=== PATIENT | female | born 1995 | race American Indian/Alaskan Native ===

== ENCOUNTER 2019-01-13 18:19 | Emergency (ER) | payer OTHER ==
[~2019-01-13] VITALS: Ht 167.6 cm; Wt 117.9 kg
[~2019-01-13 18:19] MED LIST: ATIVAN0.5 MG PO
--- OUTSIDE RECORDS SUMMARY | 2019-01-13 18:22 | XMS ---
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 E.D. VISIT COUNT (12 MO.) [address] [place] [address] 3 [facility] 3 [facility] TOTAL 8 NOTE: Visits indicate total known visits. ED/UCC VISIT TRACKING (12 MO.) 01/13/2019 18:20 [facility] TYPE: Emergency COMPLAINT: - CHEST PAIN, COUGH 12/30/2018 10:18 [facility] [place] TYPE: Emergency DIAGNOSES: - anxiety - Anxiety disorder, unspecified 11/29/2018 18:04 [facility] Yolanda POWELL TYPE: Emergency COMPLAINT: - shortness of breath 11/01/2018 23:19 [facility] [place] TYPE: Emergency COMPLAINT: - CHEST PAIN DIAGNOSES: - Chest pain, unspecified - Precordial pain 10/11/2018 16:35 STEPH[facility] Joshi TYPE: Emergency COMPLAINT: - HIVES DIAGNOSES: - Urticaria, unspecified 10/09/2018 22:22 [facility] Belen POWELL TYPE: Emergency COMPLAINT: - Anxiety 09/25/2018 13:14 [facility] Yolanda POWELL TYPE: Emergency COMPLAINT: - shortness of breath 09/25/2018 00:19 Cecy POWELL TYPE: Emergency INPATIENT VISIT TRACKING (12 MO.) No inpatient visits to display in this time frame [id number]
== END 2019-01-13 19:37 | disposition left against medical advice (07) ==
LOC: ED 18:19
DX: R07.9 Chest pain, unspecified (principal); Z53.21 Procedure and treatment not carried out due to patient leaving prior to being seen by health care provider

== ENCOUNTER 2019-04-30 00:17 | Emergency (ER) | payer OTHER ==
[~2019-04-30] VITALS: Ht 167.6 cm; Wt 117.9 kg
--- OUTSIDE RECORDS SUMMARY | 2019-04-30 00:24 | XMS ---
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 CRITERIA MET - Group Notification - 6 ED Visits in 6 Months CARE PROVIDERS Name Unknown [facility] 01/14/2019-Current PHONE: [phone] [facility] Primary [facility] PHONE: Unknown DEEPALI ANDERSEN Primary Care [facility] PHONE: Unknown Genia has no Care Guidelines for this patient. E.D. VISIT COUNT (12 MO.) 1 [facility] 2 [facility] [address] [facility] 4 [facility] Edwards TOTAL 10 NOTE: Visits indicate total known visits. ED/UCC VISIT TRACKING (12 MO.) 04/30/2019 00:17 [facility] [place] TYPE: Emergency COMPLAINT: - SOB,DIZZINESS 03/12/2019 17:40 [facility] TYPE: Emergency COMPLAINT: - chest pain 01/13/2019 18:20 [facility] Joshi TYPE: Emergency COMPLAINT: - CHEST PAIN, COUGH DIAGNOSES: - Chest pain, unspecified - Proc/trtmt not crd out d/t pt lv bef seen by [facility] prov 12/30/2018 10:18 [facility] [place] TYPE: Emergency DIAGNOSES: - anxiety - Anxiety disorder, unspecified 11/29/2018 18:04 [facility]: [facility] COMPLAINT: - shortness of breath 11/01/2018 23:19 [facility] TYPE: Emergency COMPLAINT: - CHEST PAIN DIAGNOSES: - Chest pain, unspecified - Precordial pain 10/11/2018 16:35 STEPH[facility] Joshi TYPE: Emergency COMPLAINT: - HIVES DIAGNOSES: - Urticaria, unspecified 10/09/2018 22:22 [facility] Belen POWELL TYPE: Emergency COMPLAINT: - Anxiety 09/25/2018 13:14 Cecy [facility] Yolanda POWELL TYPE: Emergency COMPLAINT: - shortness of breath 09/25/2018 00:19 Cecy [facility] Yolanda POWELL TYPE: Emergency COMPLAINT: - Anxiety INPATIENT VISIT TRACKING (12 MO.) No inpatient visits to display in this time frame [email or web address]
== END 2019-04-30 02:35 | disposition home or self-care (01) ==
LOC: ED 00:17
DX: F41.9 Anxiety disorder, unspecified (principal)
CPT/HCPCS: 99283

== ENCOUNTER 2019-06-12 20:27 | Emergency (ER) | payer OTHER ==
[~2019-06-12] VITALS: Ht 167.6 cm; Wt 117.9 kg
--- OUTSIDE RECORDS SUMMARY | 2019-06-12 20:30 | XMS ---
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 CRITERIA MET - 6 ED Visits in 6 Months CARE PROVIDERS Name Unknown [facility] 01/14/2019-Current PHONE: [phone] [facility] Primary Care [facility] PHONE: Unknown DEEPALI ANDERSEN Primary Care [facility] PHONE: Unknown Genia has no Care Guidelines for this patient. Care History Medical/Surgical 05/03/2019 [facility] - CHW CONTACTED PATIENT-HELPED PATIENT SET UP A PCP AT [facility] - APT- 05/10/2019Thursday AT 12:45PM - CHW PROVIDED TRANSPORTATION NUMBER TO PATIENT TO HELP WITH TRANSPORTATION TO AND FROM APT. Seb [facility] MO[facility] [address] [place] [address] [facility] Edwards TOTAL 12 NOTE: Visits indicate total known visits. ED/UCC VISIT TRACKING (12 MO.) 06/12/2019 20:28 [facility] TYPE: Emergency COMPLAINT: - FLU SYMPTOMS 05/09/2019 20[facility] COMPLAINT: - Acute pharyngitis, unspecified - Oth symptoms and signs involving the circ and resp systems - Dysuria DIAGNOSES: 1. Acute pharyngitis, unspecified 1. Acute pharyngitis, unspecified 2. Urinary tract infection, site not specified 04/30/2019 00:17 [facility] TYPE: Emergency COMPLAINT: - SOB,DIZZINESS DIAGNOSES: - Anxiety disorder, unspecified 03/12/2019 17:40 [facility] TYPE: Emergency COMPLAINT: - chest pain 01/13/2019 18:20 [facility] [place] TYPE: Emergency COMPLAINT: - CHEST PAIN, COUGH DIAGNOSES: - Chest pain, unspecified - Proc/trtmt not crd out d/t pt lv bef seen by [facility] care prov 12/30/2018 10:18 [facility] OR TYPE: Emergency DIAGNOSES: - anxiety - Anxiety disorder, unspecified 11/29/2018 18:04 [facility] Yolanda POWELL TYPE: Emergency COMPLAINT: - shortness of breath 11/01/2018 23:19 [facility] TYPE: Emergency COMPLAINT: - CHEST PAIN DIAGNOSES: - Chest pain, unspecified - Precordial pain 10/11/2018 16:35 STEPHANI Joshi TYPE: Emergency COMPLAINT: - HIVES DIAGNOSES: - Urticaria, unspecified 10/09/2018 22:22 [facility] [place] SHERRY TYPE: Emergency COMPLAINT: - Anxiety 09/25/2018 13:14 [facility] Marya POWELL TYPE: Emergency COMPLAINT: - shortness of breath 09/25/2018 00:19 [facility] Yolanda POWELL TYPE: Emergency COMPLAINT: - Anxiety INPATIENT VISIT TRACKING (12 MO.) No inpatient visits to display in this time frame [id number]
== END 2019-06-12 21:30 | disposition home or self-care (01) ==
LOC: ED 20:27
DX: J06.9 Acute upper respiratory infection, unspecified (principal); F17.200 Nicotine dependence, unspecified, uncomplicated
CPT/HCPCS: 99283

== ENCOUNTER 2019-07-20 19:24 | Emergency (ER) | payer OTHER ==
[~2019-07-20] VITALS: Ht 167.6 cm; Wt 117.5 kg
[2019-07-20] MEDS ORDERED: NAPROXEN500 MG PO (20:05)
== END 2019-07-20 20:13 | disposition home or self-care (01) ==
LOC: ED 19:24
DX: S64.02XA Injury of ulnar nerve at wrist and hand level of left arm, initial encounter (principal); F41.9 Anxiety disorder, unspecified; F17.200 Nicotine dependence, unspecified, uncomplicated; X58.XXXA Exposure to other specified factors, initial encounter; Z79.899 Other long term (current) drug therapy
CPT/HCPCS: 99283

== ENCOUNTER 2019-09-13 11:17 | Emergency (ER) | payer OTHER ==
[~2019-09-13] VITALS: Ht 167.6 cm; Wt 117.5 kg
[~2019-09-13 11:17] MED LIST changes: +NAPROXEN500 MG PO
== END 2019-09-13 11:41 | disposition home or self-care (01) ==
LOC: ED 11:17
DX: M79.645 Pain in left finger(s) (principal); M79.674 Pain in right toe(s)

== ENCOUNTER 2019-10-15 21:51 | Emergency (ER) | payer OTHER | END 2019-10-16 01:57 | disposition home or self-care (01) | LOC: ED 21:51 | DX: R09.89 Other specified symptoms and signs involving the circulatory and respiratory systems (principal); F17.200 Nicotine dependence, unspecified, uncomplicated | CPT/HCPCS: 99283; C9803 ==

== ENCOUNTER 2020-03-09 19:09 | Emergency (ER) | payer OTHER ==
[~2020-03-09] VITALS: Ht 167.6 cm; Wt 117.5 kg
[2020-03-09] MEDS ORDERED: ZOFRAN4 MG PO (21:16)
[2020-03-09] MEDS ORDERED: KEFLEX500 MG PO (21:16)
== END 2020-03-09 21:51 | disposition home or self-care (01) ==
LOC: ED 19:09
DX: U07.1 COVID-19 (principal); N39.0 Urinary tract infection, site not specified; F17.200 Nicotine dependence, unspecified, uncomplicated
CPT/HCPCS: 71045; 81001; 84703; 99284-25

== ENCOUNTER 2020-06-17 21:22 | Emergency (ER) | payer OTHER ==
[~2020-06-17] VITALS: Ht 167.6 cm; Wt 122.5 kg
[~2020-06-17 21:22] MED LIST changes: +KEFLEX500 MG PO; +ZOFRAN4 MG PO
--- NOTE | 2020-06-18 00:23 | EKG ---
[facility] [address] [place], [place] [address] Signed Sinus tachycardia Nonspecific ST abnormality Abnormal ECG When compared with ECG of 01-NOV-2018 23:24, No significant change was found Confirmed by BRENDA ESTRADA MD ([id number]) on 06/18/2020 12:22:48 AM Electronically Signed By: BRENDA ESTRADA MD 06/18/20 0023 PATIENT NAME: CHRISTINA BUNCH Electrocardiogram DATE OF : [birth year] PHYSICIAN: BRENDA ESTRADA MD REPORT #: [id number] REPORT IS CONFIDENTIAL AND NOT TO BE RELEASED WITHOUT AUTHORIZATION
== END 2020-06-17 22:59 | disposition home or self-care (01) ==
LOC: ED 21:22
DX: R07.89 Other chest pain (principal); F17.200 Nicotine dependence, unspecified, uncomplicated
CPT/HCPCS: 80053; 84484; 85025; 93005; 93010; 99285-25

== ENCOUNTER 2022-04-17 13:20 | Emergency (ER) | payer OTHER ==
[~2022-04-17] VITALS: Ht 167.6 cm; Wt 122.5 kg
[2022-04-17] MEDS ORDERED: TRAZODONE HCL50 MG PO (13:34)
[2022-04-17] MEDS ORDERED: OMEPRAZOLE20 MG PO (13:34)
[2022-04-17] MEDS ORDERED: HYDROXYZINE PAM25 MG PO (13:34)
[2022-04-17] MEDS ORDERED: WELLBUTRIN XL150 MG PO (13:34)
[2022-04-17] MEDS ORDERED: ONDANSETRON ODT8 MG PO (15:21)
[2022-04-17] MEDS ORDERED: REGLAN10 MG PO (15:21)
== END 2022-04-17 15:38 | disposition home or self-care (01) ==
LOC: ED 13:20
DX: R10.13 Epigastric pain (principal); K21.9 Gastro-esophageal reflux disease without esophagitis; F17.200 Nicotine dependence, unspecified, uncomplicated; Z79.899 Other long term (current) drug therapy
CPT/HCPCS: 36415; 80053; 81003; 83690; 85025; 96361; 96374; 99284-25; J2765; J7030

== ENCOUNTER 2022-04-26 01:02 | Emergency (ER) | payer OTHER ==
[~2022-04-26] VITALS: Ht 167.6 cm; Wt 122.5 kg
[~2022-04-26 01:02] MED LIST changes: +HYDROXYZINE PAM25 MG PO; +OMEPRAZOLE20 MG PO; +ONDANSETRON ODT8 MG PO; +REGLAN10 MG PO; +TRAZODONE HCL50 MG PO; +WELLBUTRIN XL150 MG PO
--- OUTSIDE RECORDS SUMMARY | 2022-04-26 01:11 | XMS ---
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 Care History Medical/Surgical 05/03/2019 [facility] - W CONTACTED PATIENT-HELPED PATIENT SET UP A PCP AT [facility] - APT- 05/10/2019Thursday AT 12:45PM - W PROVIDED TRANSPORTATION NUMBER TO PATIENT TO HELP WITH TRANSPORTATION TO AND FROM APT. Seb VISIT COUNT (12 MO.) 2 [facility] TOTAL 2 NOTE: Visits indicate total known visits. ED/UCC VISIT TRACKING (12 MO.) 04/26/2022 01:03 [facility] TYPE: Emergency COMPLAINT: - MEDICAL CLEARENCE 04/17/2022 13:21 [facility] TYPE: Emergency COMPLAINT: - VOMITING, HEADACHE, DIZZY, COLD DIAGNOSES: - Epigastric pain - Vomiting, unspecified - Nicotine dependence, unspecified, uncomplicated - Gastro-esophageal reflux disease without esophagitis - Other alf (current) drug therapy INPATIENT VISIT TRACKING (12 MO.) No inpatient visits to display in this time frame [id number]
== END 2022-04-26 02:46 | disposition home or self-care (01) ==
LOC: ED 01:02
DX: F41.9 Anxiety disorder, unspecified (principal); F32.A Depression, unspecified; K21.9 Gastro-esophageal reflux disease without esophagitis; F17.200 Nicotine dependence, unspecified, uncomplicated; Z79.899 Other long term (current) drug therapy
CPT/HCPCS: 99284

== ENCOUNTER 2022-06-30 22:05 | Emergency (ER) | payer OTHER ==
[~2022-06-30] VITALS: Ht 167.6 cm; Wt 122.5 kg
== END 2022-07-01 01:37 | disposition home or self-care (01) ==
LOC: ED 22:05
DX: T40.0X1A Poisoning by opium, accidental (unintentional), initial encounter (principal); K21.9 Gastro-esophageal reflux disease without esophagitis; F17.200 Nicotine dependence, unspecified, uncomplicated; Z79.899 Other long term (current) drug therapy
CPT/HCPCS: 36415; 84703; 96361; 96374; 99284-25; G0480; J2405; J7030

== ENCOUNTER 2022-07-06 14:36 | Emergency (ER) | payer OTHER ==
[~2022-07-06] VITALS: Ht 167.6 cm; Wt 128.1 kg
--- OUTSIDE RECORDS SUMMARY | 2022-07-06 14:44 | XMS ---
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 Care History Medical/Surgical 05/03/2019 [facility] - W CONTACTED PATIENT-HELPED PATIENT SET UP A PCP AT [facility] - APT- 05/10/2019Thursday AT 12:45PM - CHW PROVIDED TRANSPORTATION NUMBER TO PATIENT TO HELP WITH TRANSPORTATION TO AND FROM APT. E.D. VISIT COUNT (12 MO.) [address] [facility] TOTAL 4 NOTE: Visits indicate total known visits. ED/UCC VISIT TRACKING (12 MO.) 07/06/2022 14:38 [facility] TYPE: Emergency COMPLAINT: - SOB AND N/V 06/30/2022 22:11 [facility] TYPE: Emergency COMPLAINT: - VOMITING DIAGNOSES: - Other jail (current) drug therapy - Nicotine dependence, unspecified, uncomplicated - Gastro-esophageal reflux disease without esophagitis - Poisoning by opium, accidental (unintentional), initial encounter - Vomiting, unspecified 04/26/2022 01:03 [facility] TYPE: Emergency COMPLAINT: - MEDICAL CLEARENCE DIAGNOSES: - Gastro-esophageal reflux disease without esophagitis - Depression, unspecified - Anxiety disorder, unspecified - Nicotine dependence, unspecified, uncomplicated - Other jail (current) drug therapy 04/17/2022 13:21 [facility] TYPE: Emergency COMPLAINT: - VOMITING, HEADACHE, DIZZY, COLD DIAGNOSES: - Vomiting, unspecified - Nicotine dependence, unspecified, uncomplicated - Gastro-esophageal reflux disease without esophagitis - Other deli associate (current) drug therapy - Epigastric pain INPATIENT VISIT TRACKING (12 MO.) No inpatient visits to display in this time frame [id number]
[2022-07-06] MEDS ORDERED: ONDANSETRON ODT8 MG PO (17:04)
[2022-07-06] MEDS ORDERED: CARAFATE1 GM PO (17:23)
== END 2022-07-06 17:53 | disposition home or self-care (01) ==
LOC: ED 14:36
DX: R11.2 Nausea with vomiting, unspecified (principal); F17.290 Nicotine dependence, other tobacco product, uncomplicated; Z20.822 Contact with and (suspected) exposure to COVID-19
CPT/HCPCS: 36415; 71045; 80053; 85025; 87502; 96374; 96375; 99284-25; J1790; J2060; J2405; U0003

== ENCOUNTER 2022-07-15 05:10 | Emergency (ER) | payer OTHER ==
[~2022-07-15 05:10] MED LIST changes: +CARAFATE1 GM PO
--- OUTSIDE RECORDS SUMMARY | 2022-07-15 05:18 | XMS ---
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 Care History Medical/Surgical 05/03/2019 [facility] - W CONTACTED PATIENT-HELPED PATIENT SET UP A PCP AT [facility] - APT- 05/10/2019Thursday AT 12:45PM - CHW PROVIDED TRANSPORTATION NUMBER TO PATIENT TO HELP WITH TRANSPORTATION TO AND FROM APT. E.D. VISIT COUNT (12 MO.) [address] [facility] TOTAL 5 NOTE: Visits indicate total known visits. ED/UCC VISIT TRACKING (12 MO.) 07/15/2022 05:11 [facility] TYPE: Emergency COMPLAINT: - OVERDOSE 07/06/2022 14:38 [facility] TYPE: Emergency COMPLAINT: - SOB AND N/V DIAGNOSES: - Nicotine dependence, other tobacco product, uncomplicated - Contact with and (suspected) exposure to COVID-19 - Nausea with vomiting, unspecified - Shortness of breath 06/30/2022 22:11 [facility] TYPE: Emergency COMPLAINT: - VOMITING DIAGNOSES: - Poisoning by opium, accidental (unintentional), initial encounter - Vomiting, unspecified - Other extermination supervisor (current) drug therapy - Nicotine dependence, unspecified, uncomplicated - Gastro-esophageal reflux disease without esophagitis 04/26/2022 01:03 [facility] TYPE: Emergency COMPLAINT: - MEDICAL CLEARENCE DIAGNOSES: - Nicotine dependence, unspecified, uncomplicated - Other extermination supervisor (current) drug therapy - Gastro-esophageal reflux disease without esophagitis - Depression, unspecified - Anxiety disorder, unspecified 04/17/2022 13:21 [facility] TYPE: Emergency COMPLAINT: - VOMITING, HEADACHE, DIZZY, COLD DIAGNOSES: - Other care home (current) drug therapy - Epigastric pain - Vomiting, unspecified - Nicotine dependence, unspecified, uncomplicated - Gastro-esophageal reflux disease without esophagitis INPATIENT VISIT TRACKING (12 MO.) No inpatient visits to display in this time frame [id number]
[2022-07-15 09:28] VITALS: BP 110/72
== END 2022-07-15 09:30 | disposition home or self-care (01) ==
LOC: ED 05:10
DX: T40.411A Poisoning by fentanyl or fentanyl analogs, accidental (unintentional), initial encounter (principal); R40.4 Transient alteration of awareness; E66.01 Morbid (severe) obesity due to excess calories; F17.200 Nicotine dependence, unspecified, uncomplicated; Z79.899 Other long term (current) drug therapy
CPT/HCPCS: 36415; 80053; 84443; 84703; 85025; G0480

== ENCOUNTER 2022-09-01 19:19 | Emergency (ER) | payer OTHER ==
[~2022-09-01] VITALS: Ht 167.6 cm; Wt 122.7 kg
--- OUTSIDE RECORDS SUMMARY | 2022-09-01 20:19 | XMS ---
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 Care History Medical/Surgical 05/03/2019 [facility] - W CONTACTED PATIENT-HELPED PATIENT SET UP A PCP AT [facility] - APT- 05/10/2019Thursday AT 12:45PM - W PROVIDED TRANSPORTATION NUMBER TO PATIENT TO HELP WITH TRANSPORTATION TO AND FROM APT. E.D. VISIT COUNT (12 MO.) [address] [facility] TOTAL 6 NOTE: Visits indicate total known visits. ED/UCC VISIT TRACKING (12 MO.) 09/01/2022 19:20 [facility] TYPE: Emergency COMPLAINT: - VOMITING 07/15/2022 05:11 [facility] TYPE: Emergency COMPLAINT: - OVERDOSE DIAGNOSES: - Morbid (severe) obesity due to excess calories - Nicotine dependence, unspecified, uncomplicated - Other fpc (current) drug therapy - Poisoning by fentanyl or fentanyl analogs, accidental (unintentional), initial encounter - Transient alteration of awareness 07/06/2022 14:38 [facility] TYPE: Emergency COMPLAINT: - SOB AND N/V DIAGNOSES: - Contact with and (suspected) exposure to COVID-19 - Nausea with vomiting, unspecified - Nicotine dependence, other tobacco product, uncomplicated - Shortness of breath 06/30/2022 22:11 [facility] TYPE: Emergency COMPLAINT: - VOMITING DIAGNOSES: - Gastro-esophageal reflux disease without esophagitis - Nicotine dependence, unspecified, uncomplicated - Other fpc (current) drug therapy - Poisoning by opium, accidental (unintentional), initial encounter - Vomiting, unspecified 04/26/2022 01:03 [facility] TYPE: Emergency COMPLAINT: - MEDICAL CLEARENCE DIAGNOSES: - Anxiety disorder, unspecified - Depression, unspecified - Gastro-esophageal reflux disease without esophagitis - Nicotine dependence, unspecified, uncomplicated - Other fpc (current) drug therapy 04/17/2022 13:[address] [facility] [place] TYPE: Emergency COMPLAINT: - VOMITING, HEADACHE, DIZZY, COLD DIAGNOSES: - Epigastric pain - Gastro-esophageal reflux disease without esophagitis - Nicotine dependence, unspecified, uncomplicated - Other intermediate manager (current) drug therapy - Vomiting, unspecified INPATIENT VISIT TRACKING (12 MO.) No inpatient visits to display in this time frame [id number]
[2022-09-01] MEDS ORDERED: LOMOTIL TABLET1 EACH PO (20:58)
[2022-09-01] MEDS ORDERED: CLONIDINE HCL0.1 MG PO (20:58)
[2022-09-01] MEDS ORDERED: ONDANSETRON ODT8 MG PO (20:58)
[2022-09-01] MEDS ORDERED: TRAZODONE HCL50 MG PO (20:59)
[2022-09-01] MEDS ORDERED: ANASPAZ0.125 MG PO (20:59)
[2022-09-01 21:50] VITALS: BP 135/74
== END 2022-09-01 21:50 | disposition home or self-care (01) ==
LOC: ED 19:19
DX: F19.939 Other psychoactive substance use, unspecified with withdrawal, unspecified (principal); F17.290 Nicotine dependence, other tobacco product, uncomplicated
CPT/HCPCS: 36415; 74177; 80053; 81003; 83690; 84703; 85025; 96361; 96375; 99284-25; A9270; J1790; J1885; J2405; J3490; J7030; Q9967

== ENCOUNTER 2023-02-10 18:45 | Emergency (ER) | payer OTHER ==
[~2023-02-10] VITALS: Ht 167.6 cm; Wt 122.7 kg
[~2023-02-10 18:45] MED LIST changes: +ANASPAZ0.125 MG PO; +CLONIDINE HCL0.1 MG PO; +LOMOTIL TABLET1 EACH PO
[2023-02-10 20:28] VITALS: BP 122/76
== END 2023-02-10 20:28 | disposition home or self-care (01) ==
LOC: ED 18:45
DX: T40.2X1A Poisoning by other opioids, accidental (unintentional), initial encounter (principal); R11.0 Nausea; F17.290 Nicotine dependence, other tobacco product, uncomplicated
CPT/HCPCS: 96374; 99284-25; J2405; J3490

== ENCOUNTER 2024-01-02 07:38 | Emergency (ER) | payer OTHER ==
[~2024-01-02] VITALS: Ht 167.6 cm; Wt 71.2 kg
[~2024-01-02 07:38] MED LIST changes: +CEPHALEXIN500 M1 PO; +DAILY VALUE1 EACH PO; +HYDROXYZINE HCL50 MG PO; +HYOSCYAMINE0.125 M1 SL; +IBUPROFEN400 MG PO; +LOPERAMIDE2 M1 PO; +ONDANSETRON HCL8 MG PO; +TRAZODONE HCL100 MG PO; +TYLENOL EXTRA500 MG PO
[2024-01-02] MEDS ORDERED: ondansetron HCL 4 MG/2 ML VIAL IV ONE (08:00)
[2024-01-02] MEDS ORDERED: SODIUM CHLORIDE 0.9% 1,000 ML IV ONE (08:00)
[2024-01-02 08:20] LABS: BASOPHILS 1.1 % (0-2); EOSINOPHILS 1.9 % (0-6); HEMATOCRIT 37.3 % (35.0-50.0); HEMOGLOBIN 12.9 g/dL (12.0-18.0); LYMPHOCYTES 25.2 % (24-44); MCH 27.3 (27-36); MCHC 34.6 g/dl (30-36); MONOCYTES 7.6 % (0-12); NEUTROPHILS 64.2 % (39-80); PLATELET COUNT 653 K/uL (140-440); RBC 4.72 M/ul (4.3-5.7); RDW 15.7 (10.5-15.0)
[2024-01-02 08:34] LABS: ALBUMIN 3.1 g/dL (3.4-5.0); ALBUMIN/GLOBULIN RATIO 0.6 (1.1-2.4); ANION GAP 13.9 (7-21); BILIRUBIN, TOTAL 0.3 ng/dL (0.2-1.0); BUN/CREATININE RATIO 23.07 (6.0-28.6); CALCIUM 8.8 mg/dL (8.5-10.1); CREATININE, SERUM 0.91 mg/dL (0.55-1.02); POTASSIUM 3.9 mmol/L (3.5-5.1); PROTEIN, TOTAL 8.3 g/dL (6.4-8.2)
[2024-01-02] MEDS ORDERED: LORazepam 2 MG/ML VIAL IV ONE (08:45)
[2024-01-02] MEDS ORDERED: BUPRENORPHINE HC8 MG SL (11:55)
[2024-01-02 12:01] VITALS: BP 110/66
== END 2024-01-02 11:55 | disposition home or self-care (01) ==
LOC: ED 07:38
PROVIDERS: Emergency Medicine
DX: R10.12 Left upper quadrant pain (principal); Z72.0 Tobacco use; Z88.8 Allergy status to other drugs, medicaments and biological substances; Z79.899 Other long term (current) drug therapy
CPT/HCPCS: 36415; 71045; 80053; 80307; 83690; 84703; 85025; 96374; 96375; 99284-25; J2060; J2405; J7030

== ENCOUNTER 2024-01-03 00:21 | Emergency (ER) | payer OTHER ==
[~2024-01-03] VITALS: Ht 167.6 cm; Wt 78.0 kg
[~2024-01-03 00:21] MED LIST changes: +BUPRENORPHINE HC8 MG SL
[2024-01-03] MEDS ORDERED: Buprenorphine/Naloxone 8/2mg 1 EACH HOME.PACK SL ONE ×2 (01:30→01:45)
[2024-01-03] MEDS ORDERED: ONDANSETRON 4 MG HOME.PACK SL ONE (01:30)
[2024-01-03] MEDS ORDERED: NALOXONE 4 MG NASAL SPRAY #2 HOME.PACK NAS ONE (01:30)
[2024-01-03 01:49] VITALS: BP 99/66
== END 2024-01-03 01:45 | disposition home or self-care (01) ==
LOC: ED 00:21
DX: F11.23 Opioid dependence with withdrawal (principal); R11.10 Vomiting, unspecified; R10.9 Unspecified abdominal pain; T40.415A Adverse effect of fentanyl or fentanyl analogs, initial encounter; F17.200 Nicotine dependence, unspecified, uncomplicated; Z88.8 Allergy status to other drugs, medicaments and biological substances
CPT/HCPCS: 99283; A9270; J3490

== ENCOUNTER 2024-01-30 15:05 | Emergency (ER) | payer OTHER ==
[~2024-01-30] VITALS: Ht 167.6 cm; Wt 75.5 kg
[2024-01-30] MEDS ORDERED: SUBOXONE 8 MG-1 EAC1 SL (15:24)
[2024-01-30 16:07] LABS: BILIRUBIN, URINE NEGATIVE (negative); BLOOD/HGB, URINE NEGATIVE (Negative); KETONE, URINE NEGATIVE (Negative); LEUK ESTERASE, URINE NEGATIVE (negative); NITRITE, URINE NEGATIVE (negative)
[2024-01-30] MEDS ORDERED: buprenorphine HCL 8 MG TAB.SUBL SL ONE (16:15)
[2024-01-30 16:21] LABS: AMPHETAMINES, URINE NEGATIVE (NEGATIVE); BARBITURATES, URINE NEGATIVE (NEGATIVE); BENZODIAZEPINE, URINE NEGATIVE (NEGATIVE); BUPRENORPHINE, URINE POSITIVE (NEGATIVE); CANNABINOID, URINE NEGATIVE (NEGATIVE); COCAINE, URINE POSITIVE (NEGATIVE); ECSTASY, URINE NEGATIVE (NEGATIVE); FENTANYL, URINE NEGATIVE (NEGATIVE); METHADONE, URINE NEGATIVE (NEGATIVE); OPIATES, URINE NEGATIVE (NEGATIVE); OXYCODONE, URINE NEGATIVE (NEGATIVE); PHENCYCLIDINE, URINE NEGATIVE (NEGATIVE)
[2024-01-30 16:41] LABS: BASOPHILS 0.3 % (0-2); EOSINOPHILS 1.1 % (0-6); HEMATOCRIT 39.1 % (35.0-50.0); HEMOGLOBIN 12.9 g/dL (12.0-18.0); LYMPHOCYTES 20.7 % (24-44); MONOCYTES 5.2 % (0-12); NEUTROPHILS 72.7 % (39-80); PLATELET COUNT 337 K/uL (140-440); RBC 4.77 M/ul (4.3-5.7)
[2024-01-30 17:02] LABS: ACETAMINOPHEN 0 ug/mL (10-30); ALBUMIN 3.1 g/dL (3.4-5.0); ALBUMIN/GLOBULIN RATIO 0.74 (1.1-2.4); ALCOHOL, MEDICAL <3 ng/dL (<3); ALKALINE PHOSPHATASE 80 U/L (46-116); ALT (SGPT) 21 U/L (14-59); ANION GAP 5.3 (7-21); AST (SGOT) 10 U/L (15-37); BILIRUBIN, TOTAL 0.4 ng/dL (0.2-1.0); BUN/CREATININE RATIO 14.11 (6.0-28.6); CALCIUM 8.6 mg/dL (8.5-10.1); CARBON DIOXIDE 33 mmol/L (21-32); CHLORIDE 103 mmol/L (98-107); CREATININE, SERUM 0.85 mg/dL (0.55-1.02); GLOMERULAR FILTRATION RATE,EST 97 mL/min (>60); POTASSIUM 4.3 mmol/L (3.5-5.1); PROTEIN, TOTAL 7.3 g/dL (6.4-8.2); SALICYLATE 0.5 mg/dL (2.8-20.0); UREA NITROGEN 12 mg/dL (7-18)
[2024-01-30] MEDS ORDERED: Buprenorphine/Naloxone 8/2mg 1 EACH HOME.PACK SL ONE (18:45)
[2024-01-30] MEDS ORDERED: NALOXONE 4 MG NASAL SPRAY #2 HOME.PACK NAS ONE (18:45)
[2024-01-30 18:56] VITALS: BP 115/74
== END 2024-01-30 18:56 | disposition home or self-care (01) ==
LOC: ED 15:05
PROVIDERS: Emergency Medicine
DX: S01.01XA Laceration without foreign body of scalp, initial encounter (principal); Y04.0XXA Assault by unarmed brawl or fight, initial encounter; F11.23 Opioid dependence with withdrawal; R45.851 Suicidal ideations; F17.200 Nicotine dependence, unspecified, uncomplicated; Z88.8 Allergy status to other drugs, medicaments and biological substances; Z79.899 Other long term (current) drug therapy
CPT/HCPCS: 36415; 70450; 80053; 80307; 81003; 84443; 84703; 85025; 99284-25; A9270; G0480; J3490

== ENCOUNTER 2024-04-10 18:06 | Emergency (ER) | payer OTHER ==
[~2024-04-10] VITALS: Ht 167.6 cm; Wt 78.9 kg
[~2024-04-10 18:06] MED LIST changes: +BACTRIM DS TAB1 EACH PO; +CITALOPRAM HBR10 MG PO; +SUBOXONE 8 MG-1 EAC1 SL
[2024-04-10 22:15] VITALS: BP 104/57
[2024-04-10] MEDS ORDERED: NALOXONE 4 MG NASAL SPRAY #2 HOME.PACK NAS ONE (22:15)
== END 2024-04-10 22:15 | disposition home or self-care (01) ==
LOC: ED 18:06
DX: T40.411A Poisoning by fentanyl or fentanyl analogs, accidental (unintentional), initial encounter (principal); K21.9 Gastro-esophageal reflux disease without esophagitis; F17.200 Nicotine dependence, unspecified, uncomplicated; Z88.8 Allergy status to other drugs, medicaments and biological substances; Z79.899 Other long term (current) drug therapy
CPT/HCPCS: 99284; J3490

== ENCOUNTER 2024-04-18 11:54 | Emergency (ER) | payer OTHER ==
[~2024-04-18] VITALS: Ht 167.6 cm; Wt 82.1 kg
[2024-04-18] MEDS ORDERED: NICOTINE 14 MG/24 HR 1 EA TDSY TD ONE (12:15)
[2024-04-18] MEDS ORDERED: buprenorphine HCL 8 MG TAB.SUBL SL ONE (12:15)
[2024-04-18] MEDS ORDERED: ACETAMINOPHEN 500 MG TAB PO ONE (12:15)
[2024-04-18] MEDS ORDERED: NALOXONE 4 MG NASAL SPRAY #2 HOME.PACK NAS ONE (13:00)
[2024-04-18] MEDS ORDERED: BUPRENORPHIN-N1 EACH SL (13:21)
[2024-04-18 13:36] VITALS: BP 98/65
--- NOTE | 2024-04-19 18:27 | EKG ---
[facility] [address] [place], [place] [address] Signed Normal sinus rhythm Normal ECG When compared with ECG of 17-JUN-2020 21:31, No significant change was found Confirmed by Willie Dumont MD ([id number]) on 04/19/2024 6:27:03 PM Electronically Signed By: WILLIE DUMONT MD 04/19/24 1827 PATIENT NAME: CHRISTINA BUNCH Electrocardiogram DATE OF : [birth year] PHYSICIAN: WILLIE DUMONT MD REPORT #: [id number] REPORT IS CONFIDENTIAL AND NOT TO BE RELEASED WITHOUT AUTHORIZATION
== END 2024-04-18 13:35 | disposition home or self-care (01) ==
LOC: ED 11:54
DX: S20.219A Contusion of unspecified front wall of thorax, initial encounter (principal); F11.10 Opioid abuse, uncomplicated; K21.9 Gastro-esophageal reflux disease without esophagitis; F17.200 Nicotine dependence, unspecified, uncomplicated; X58.XXXA Exposure to other specified factors, initial encounter; Z79.899 Other long term (current) drug therapy; Z88.8 Allergy status to other drugs, medicaments and biological substances
CPT/HCPCS: 71046; 93005; 93010; 99283-25; A9270; J3490

== ENCOUNTER 2024-05-25 17:38 | Emergency (ER) | payer OTHER ==
[~2024-05-25] VITALS: Ht 167.6 cm; Wt 74.8 kg
[~2024-05-25 17:38] MED LIST changes: +BUPRENORPHIN-N1 EACH SL
[2024-05-25] MEDS ORDERED: LORazepam 2 MG/ML VIAL IV ONE (20:30)
[2024-05-25] MEDS ORDERED: cloNIDine HCL 0.1 MG TAB PO ONE (20:30)
[2024-05-25 21:08] LABS: BASOPHILS 0.2 % (0-2); EOSINOPHILS 0.2 % (0-6); HEMATOCRIT 37.2 % (35.0-50.0); HEMOGLOBIN 12.3 g/dL (12.0-18.0); LYMPHOCYTES 16.7 % (24-44); MCHC 33.2 g/dl (30-36); MCV 81.2 fl (81-99); MONOCYTES 3.3 % (0-12); NEUTROPHILS 79.6 % (39-80); PLATELET COUNT 814 K/uL (140-440); RBC 4.58 M/ul (4.3-5.7); RDW 15.9 (10.5-15.0)
[2024-05-25 21:30] LABS: ALBUMIN/GLOBULIN RATIO 0.55 (1.1-2.4); ANION GAP 13.7 (7-21); BILIRUBIN, TOTAL 0.3 mg/dL (0.2-1.0); CALCIUM 9.2 mg/dL (8.5-10.1); CREATININE, SERUM 0.7 mg/dL (0.55-1.02); MAGNESIUM 2.1 mg/dL (1.8-2.4); POTASSIUM 3.7 mmol/L (3.5-5.1); PROTEIN, TOTAL 8.5 g/dL (6.4-8.2)
[2024-05-25] MEDS ORDERED: Buprenorphine/Naloxone 8/2mg 1 EACH HOME.PACK SL ONE (22:00)
[2024-05-25] MEDS ORDERED: ONDANSETRON 4 MG HOME.PACK SL ONE (22:00)
[2024-05-25] MEDS ORDERED: NALOXONE 4 MG NASAL SPRAY #2 HOME.PACK NAS ONE (22:00)
[2024-05-25 22:34] VITALS: BP 118/69
== END 2024-05-25 22:39 | disposition home or self-care (01) ==
LOC: ED 17:38
PROVIDERS: Family Medicine
DX: F11.288 Opioid dependence with other opioid-induced disorder (principal); F19.288 Other psychoactive substance dependence with other psychoactive substance-induced disorder; K21.9 Gastro-esophageal reflux disease without esophagitis; F17.200 Nicotine dependence, unspecified, uncomplicated; Z88.8 Allergy status to other drugs, medicaments and biological substances
CPT/HCPCS: 36415; 71045; 80053; 83735; 83880; 85025; 96374; 99284-25; A9270; J2060; J3490

== ENCOUNTER 2024-06-21 21:40 | Emergency (ER) | payer OTHER ==
[~2024-06-21] VITALS: Ht 167.6 cm; Wt 74.0 kg
[2024-06-21 22:00] LABS: EOSINOPHILS 2.9 % (0-6); HEMATOCRIT 36.4 % (35.0-50.0); HEMOGLOBIN 12.2 g/dL (12.0-18.0); LYMPHOCYTES 39.2 % (24-44); MCH 27.2 (27-36); MCHC 33.6 g/dl (30-36); NEUTROPHILS 49.9 % (39-80); PLATELET COUNT 386 K/uL (140-440); RDW 15.6 (10.5-15.0)
[2024-06-21 22:16] LABS: ALBUMIN 3.7 g/dL (3.4-5.0); ALBUMIN/GLOBULIN RATIO 0.86 (1.1-2.4); ALKALINE PHOSPHATASE 82 U/L (46-116); ALT (SGPT) 18 U/L (14-59); ANION GAP 12.7 (7-21); AST (SGOT) 15 U/L (15-37); BILIRUBIN, TOTAL 0.4 mg/dL (0.2-1.0); BUN/CREATININE RATIO 17.28 (6.0-28.6); CALCIUM 8.9 mg/dL (8.5-10.1); CARBON DIOXIDE 28 mmol/L (21-32); CHLORIDE 107 mmol/L (98-107); CREATININE, SERUM 0.81 mg/dL (0.55-1.02); GLOMERULAR FILTRATION RATE,EST 103 mL/min (>60); MAGNESIUM 2.2 mg/dL (1.8-2.4); POTASSIUM 3.7 mmol/L (3.5-5.1); UREA NITROGEN 14 mg/dL (7-18)
[2024-06-21] MEDS ORDERED: NALOXONE 4 MG NASAL SPRAY #2 HOME.PACK NAS ONE (22:45)
[2024-06-21 22:48] VITALS: BP 109/96
--- NOTE | 2024-06-23 22:25 | EKG ---
[facility] [address] [place] [address] Signed Normal sinus rhythm Normal ECG When compared with ECG of 18-APR-2024 12:06, No significant change was found Confirmed by Matt Peña MD () on 06/23/2024 10:25:21 PM Electronically Signed By: MATT PEÑA MD 06/23/242224 PATIENT NAME: CHRISTINA BUNCH Electrocardiogram DATE OF : [birth year] PHYSICIAN: MATT PEÑA MD REPORT #: [id number] REPORT IS CONFIDENTIAL AND NOT TO BE RELEASED WITHOUT AUTHORIZATION
== END 2024-06-21 22:49 | disposition home or self-care (01) ==
LOC: ED 21:40
PROVIDERS: Family Medicine
DX: F15.10 Other stimulant abuse, uncomplicated (principal); F11.10 Opioid abuse, uncomplicated; R00.0 Tachycardia, unspecified; F17.200 Nicotine dependence, unspecified, uncomplicated
CPT/HCPCS: 36415; 71045; 80053; 83735; 84484; 85025; 93005; 93010; 99285-25; J3490

== ENCOUNTER 2024-07-17 17:10 | Emergency (ER) | payer OTHER ==
[~2024-07-17] VITALS: Ht 167.6 cm; Wt 74.0 kg
[2024-07-18] MEDS ORDERED: DOXYCYCLINE HYCLATE 100 MG HOME.PACK PO ONE (01:15)
== END 2024-07-18 01:42 | disposition home or self-care (01) ==
LOC: ED 17:10
DX: L03.116 Cellulitis of left lower limb (principal); F17.200 Nicotine dependence, unspecified, uncomplicated; Z88.8 Allergy status to other drugs, medicaments and biological substances; K21.9 Gastro-esophageal reflux disease without esophagitis
CPT/HCPCS: 99283; A9270

== ENCOUNTER 2025-01-03 18:05 | Emergency (ER) | payer OTHER ==
[~2025-01-03] VITALS: Ht 167.6 cm; Wt 67.1 kg
[2025-01-03] MEDS ORDERED: HYDROXYZINE HCL10 MG (18:27)
[2025-01-03] MEDS ORDERED: CELEXA20 MG (18:27)
[2025-01-03] MEDS ORDERED: WELLBUTRIN SR150 MG (18:28)
[2025-01-03] MEDS ORDERED: ALBUTEROL/IPRATROPIUM 3 ML NEB INH PRN (18:30)
[2025-01-03 18:37] LABS: BASOPHILS 0.2 % (0.1-1.2); EOSINOPHILS 0 % (0.7-5.8); LYMPHOCYTES 10.7 % (19.3-51.7); MCH 26.6 PG (25.6-32.2); MCHC 33.0 g/dL (32.2-35.5); MCV 80.5 fL (79.4-94.8); MONOCYTES 9.1 % (4.7-12.5); NEUTROPHILS 79.5 % (34.0-71.1); RBC 4.10 M/uL (3.93-5.22)
[2025-01-03 18:55] LABS: ALT (SGPT) 16 U/L (14-59); AST (SGOT) 21 U/L (15-37); GLOMERULAR FILTRATION RATE,EST 99 mL/min (>60); PROTEIN, TOTAL 7.4 g/dL (6.4-8.2); UREA NITROGEN 14 mg/dL (7-18)
[2025-01-03] MEDS ORDERED: IBUPROFEN 600 MG TAB PO ONE (19:30)
[2025-01-03] MEDS ORDERED: MORPHINE SULFATE 4 MG/ML VIAL IV ONE (19:30)
[2025-01-03] MEDS ORDERED: SODIUM CHLORIDE 0.9% 1,000 ML IV ONE (19:30)
[2025-01-03 19:55] LABS: BLOOD/HGB, URINE SMALL (Negative); KETONE, URINE TRACE (Negative); LEUK ESTERASE, URINE TRACE (negative); NITRITE, URINE NEGATIVE (negative)
[2025-01-03 20:01] LABS: BACTERIA, URINE 4+ /hpf (negative); CASTS, URINE NONE SEEN \\lpf; CRYSTALS, URINE NONE SEEN (0-1+); EPITHELIAL CELLS, URINE NONE SEEN /lpf (0-1+); REFLEX CULTURE, URINE Yes (No)
[2025-01-03 20:04] LABS: LACTIC ACID, BLOOD 0.6 mmol/L (0.4-2.0)
[2025-01-03 20:41] LABS: INFLUENZA B NAA NEGATIVE (NEGATIVE); RESPIRATORY SYNCYTIAL VIR NAA NEGATIVE (NEGATIVE)
[2025-01-03] MEDS ORDERED: CEFDINIR300 MG PO (21:25)
[2025-01-03] MEDS ORDERED: HYDROCODON-ACE1 EA10 PO (21:25)
[2025-01-03] MEDS ORDERED: HYDROCODONE BIT/ACETAMINOPHEN 5/325 MG 1 TAB HOME.PACK PO ONE (21:30)
[2025-01-03] MEDS ORDERED: ONDANSETRON 4 MG HOME.PACK SL ONE (21:30)
[2025-01-03] MEDS ORDERED: CEFDINIR 300 MG HOME.PACK PO ONE (21:30)
[2025-01-03 21:55] VITALS: BP 104/69
--- NOTE | 2025-01-09 13:45 | EKG ---
[facility] [address] [place] [address] Signed Sinus tachycardia Voltage criteria for left ventricular hypertrophy Otherwise normal ECG When compared with ECG of 21-JUN-2024 21:42, No significant change was found Confirmed by Franc Watkins DO ([id number]) on 01/09/2025 1:45:24 PM Electronically Signed By: FRANC WATKINS DO 01/09/25 1345 PATIENT NAME: ALIVIAXIMENASVETLANA CURRIE Electrocardiogram DATE OF : [birth year] PHYSICIAN: FRANC WATKINS DO REPORT #: [id number] REPORT IS CONFIDENTIAL AND NOT TO BE RELEASED WITHOUT AUTHORIZATION
== END 2025-01-03 22:08 | disposition home or self-care (01) ==
LOC: ED 18:05
PROVIDERS: Emergency Medicine; Family Medicine
DX: N12 Tubulo-interstitial nephritis, not specified as acute or chronic (principal); F17.200 Nicotine dependence, unspecified, uncomplicated; Z88.8 Allergy status to other drugs, medicaments and biological substances; Z79.899 Other long term (current) drug therapy
CPT/HCPCS: 36415; 71045; 74177; 80053; 81001; 83605; 83735; 84484; 84703; 85025; 87040; 87088; 87186; 87502; 93005; 93010; 96361; 96374; 96375; 99285-25; A9270; J0696; J2270; J2405; J7030; Q9967; U0002